=== PATIENT | male | born 1955 | race African-American/Black ===

== ENCOUNTER 2025-01-02 10:42 | Emergency (ER) | payer MEDICARE, OTHER ==
[~2025-01-02] VITALS: Ht 180.3 cm; Wt 99.8 kg
[~2025-01-02 10:42] MED LIST: ALLOPURINOL100 MG PO; FISH OIL PO; Z.3.CENTRUM SILVER1 PO
[2025-01-02 10:50] VITALS: TEMP 98
[2025-01-02 11:25] LABS: BASOPHILS % 0.8 % (0.0-1.0); EOSINOPHILS % 3.4 % (0.0-6.0); LYMPHOCYTES % 23.3 % (18.0-39.1); MONOCYTES % 7.4 % (4.4-11.3); NEUTROPHILS % 64.8 % (38.7-80.0); RED CELL DISTRIBUTION WIDTH 14.5 % (11.7-14.4)
[2025-01-02 11:30] LABS: INR 1.14
[2025-01-02 11:38] LABS: EST GLOMERULAR FILTRATION RATE 72 ML/MIN (>=60)
[2025-01-02] MEDS: MAGNESIUM/ALUMINUM/SIMETHICONE 30 ML UDC PO ONE (11:39)
[2025-01-02] MEDS: BELLADONNA ALK/PHENOBARBITAL 5 ML UDC PO ONE (11:39)
[2025-01-02] MEDS: SODIUM CHLORIDE 0.9% 500ML 500 ML IV ONE (13:11)
[2025-01-02 14:42] VITALS: PULSE 52; RESP 15; O2SAT 100
== END 2025-01-02 15:36 | disposition home or self-care (01) ==
LOC: ER 10:54
DX: R07.89 Other chest pain (principal); K21.9 Gastro-esophageal reflux disease without esophagitis; I10 Essential (primary) hypertension; E78.5 Hyperlipidemia, unspecified
CPT/HCPCS: 36415; 71045; 80053; 83735; 83880; 84484; 85025; 85610; 85730; 93005; 99284; J2470; J7040